=== PATIENT | female | born 1975 | race Caucasian/White ===

== ENCOUNTER 2018-02-17 20:13 | Emergency (ER) | payer SELFPAY ==
[~2018-02-17] VITALS: Ht 162.6 cm; Wt 58.0 kg
[2018-02-17 20:35] VITALS: BP 187/102; PULSE 92; RESP 18; TEMP 98.6; O2SAT 99
[2018-02-17] MEDS ORDERED: IBUPROFEN 600 MG TAB PO ONE (22:00)
[2018-02-17] MEDS ORDERED: TETANUS/DIPHTHERIA TOXOID ADULT 0.5 ML VIAL IM ONE (22:00)
[2018-02-17] MEDS ORDERED: TYLE325T PO (22:14)
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
[2018-02-17] MEDS ORDERED: BACITRACIN TOP OINT 15 GM TUBE TOPICAL ONE (22:15)
[2018-02-17 22:22] VITALS: BP 167/103
[2018-02-17] MEDS ORDERED: HYDR-3799 PO (22:24)
[2018-02-17] MEDS ORDERED: hydrALAZINE HCL 25 MG TAB PO ONE (22:30)
[2018-02-18] MEDS ORDERED: hydrALAZINE HCL 10 MG TAB PO SCH
== END 2018-02-17 22:40 | disposition home or self-care (01) ==
LOC: NEPD 20:13
DX: T24.001A Burn of unspecified degree of unspecified site of right lower limb, except ankle and foot, initial encounter (principal); X16.XXXA Contact with hot heating appliances, radiators and pipes, initial encounter; Z23 Encounter for immunization
CPT/HCPCS: 90471; 90714

== ENCOUNTER 2018-02-25 11:01 | Emergency (ER) | payer SELFPAY ==
[~2018-02-25] VITALS: Ht 162.6 cm; Wt 60.0 kg
[~2018-02-25 11:01] MED LIST: HYDR-3799 PO; TYLE325T PO
[2018-02-25 11:14] VITALS: BP 162/99; PULSE 104; RESP 16; TEMP 99.2; O2SAT 96
[2018-02-25] MEDS ORDERED: TRAM50TA PO (11:41)
[2018-02-25] MEDS ORDERED: CIPR0.3S RIGHT EAR (11:41)
[2018-02-25] MEDS ORDERED: AUGM875T3 PO (11:41)
[2018-02-25] MEDS ORDERED: IBUP1TAB7 PO (11:41)
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
[2018-02-25] MEDS ORDERED: traMADol HCL 50 MG TAB PO ONE (11:45)
[2018-02-25] MEDS ORDERED: AMOXICILLIN/CLAVULANATE K 875 MG TAB PO ONE (11:45)
== END 2018-02-25 12:08 | disposition home or self-care (01) ==
LOC: NEPD 11:01
DX: H66.91 Otitis media, unspecified, right ear (principal); R05 Cough; I10 Essential (primary) hypertension; Z72.0 Tobacco use
CPT/HCPCS: 99283